=== PATIENT | male | born 1990 | race Caucasian/White ===

== ENCOUNTER 2023-04-03 12:32 | Emergency (ER) | payer OTHER ==
[~2023-04-03] VITALS: Ht 185.4 cm; Wt 77.1 kg
[2023-04-03 12:43] VITALS: BP 126/62; PULSE 88; RESP 18; TEMP 98; O2SAT 97
[2023-04-03] MEDS ORDERED: KETOROLAC 30 MG/ML VIAL IM ONE (12:55)
[2023-04-03] MEDS ORDERED: IBUP-2213 PO (13:46)
== END 2023-04-03 14:14 | disposition home or self-care (01) ==
LOC: MED 12:32
DX: M25.572 Pain in left ankle and joints of left foot (principal); Z79.899 Other long term (current) drug therapy
CPT/HCPCS: 73610; 96372; 99283; J1885